=== PATIENT | male | born 1970 | race African-American/Black ===

== ENCOUNTER 2017-09-07 10:14 | Inpatient (IN) | payer BC ==
[2017-09-07 10:30] VITALS: BMI 30.7
--- NOTE | 2017-09-07 11:56 | HP ---
Admission ROS [facility] - [facility] Chief Complaint: Sent by drug court to rehab to stop drug use. Allergies/Adverse Reactions: Allergies Allergy/AdvReac Type Severity Reaction Status Date / Time No Known Allergies Allergy Verified 09/07/17 11:07 History of Present Illness: 47 y/o man with a long hx. of Alcohol & Cocaine dependence is admitted to rehab. Pt. was sent here by drug court. Exam Limitations: No Limitations - Ebola screening Have you traveled outside of the country in the last 21 days: No (N) Have you had contact with anyone from an Ebola affected area: No Have you been sick,other than usual withdrawal symptoms: No Do you have a fever: No - Review of Systems Constitutional: No Symptoms Reported EENT: reports: No Symptoms Reported Respiratory: reports: Wheezing (Off & On because of asthma) Cardiac: reports: No Symptoms Reported GI: reports: No Symptoms Reported : reports: No Symptoms Reported Musculoskeletal: reports: Joint Pain Integumentary: reports: No Symptoms Reported Neuro: reports: No Symptoms reported Endocrine: reports: No Symptoms Reported Hematology: reports: No Symptoms Reported Psychiatric: reports: No Sypmtoms Reported Other Systems: Reviewed and Negative Patient History - Patient Medical History Hx Anemia: No Hx Asthma: Yes Hx Chronic Obstructive Pulmonary Disease (COPD): No Hx Cancer: No Hx Cardiac Disorders: No Hx Congestive Heart Failure: No Hx Hypertension: Yes Hx Hypercholesterolemia: Yes (No meds in yrs.) Hx Pacemaker: No HX Cerebrovascular Accident: No Hx Seizures: No Hx Dementia: No Hx Diabetes: No Hx Gastrointestinal Disorders: No Hx Liver Disease: No Hx Genitourinary Disorders: No Hx Sexually Transmitted Disorders: No Hx Thyroid Disease: No Hx Human Immunodeficiency Virus (HIV): No Hx Hepatitis C: No Hx Depression: No Hx Suicide Attempt: No Hx Bipolar Disorder: No Hx Schizophrenia: No - Patient Surgical History Past Surgical History: Yes Hx Neurologic Surgery: Yes (C5-6 Laminectomy) Hx Orthopedic Surgery: Yes (Left Rotator cuff) - PPD History Previous Implant?: Yes Documented Results: Negative w/o proof PPD to be Administered?: Yes - Smoking Cessation Smoking history: Current every day smoker Aproximately how many cigarettes per day: 10 Hx Chewing Tobacco Use: No Initiated information on smoking cessation: Yes 'Breaking Loose' booklet given: 09/07/17 - Substance & Tx. History Hx Alcohol Use: Yes Hx Substance Use: Yes Substance Use Type: Alcohol, Cocaine (PCP) Hx Substance Use Treatment: Yes ([facility]) - Substances Abused Alcohol Route: Oral Frequency: 1-2 times per week Amount used: 1 pint Age of first use: 13 Date of Last Use: 08/18/17 Cocaine Route: Inhalation Frequency: 1-3 times last 30 days Amount used: 3-4 gm Age of first use: 20 Date of Last Use: 08/29/17 Family Disease History - Family Disease History Family Disease History: Diabetes: Mother (HTN, Throat Ca.), Sister (HTN), Heart Disease: Father (HTN), Mother, Brother (HTN), Sister, CA: Mother Admission Physical Exam [facility] - Vital Signs Vital Signs: Vital Signs - 24 hr 09/07/17 10:28 Temperature 98.1 F Pulse Rate 90 Respiratory 18 Rate Blood Pressure 148/85 - Physical General Appearance: Yes: Within Normal Limits HEENTM: Yes: Within Normal Limits Respiratory: Yes: Chest Non-Tender, Lungs Clear, Normal Breath Sounds Neck: Yes: Supple Breast: Yes: Breast Exam Deferred Cardiology: Yes: Regular Rhythm, Regular Rate, S1, S2 Abdominal: Yes: Normal Bowel Sounds, Non Tender, Soft Genitourinary: Yes: Within Normal Limits Back: Yes: Within Normal Limits Musculoskeletal: Yes: Within Normal Limits Extremities: Yes: Within Normal Limits Neurological: Yes: Fully Oriented, Alert Integumentary: Yes: Within Normal Limits Lymphatic: Yes: Within Normal Limits - Diagnostic (1) Uncomplicated alcohol dependence Current Visit: Yes Status: Acute (2) Cocaine dependence, uncomplicated Current Visit: Yes Status: Acute (3) HTN (hypertension) Current Visit: Yes Status: Acute Cleared for Admission [facility] - Detox or Rehab Claeared for Rehab Admission: Yes [facility] Breath Alcohol Content Breath Alcohol Content: 0 Urine Drug Screen - Results Drug Screen Negative: No Urine Drug Screen Results: RERE-Cocaine, PCP-Phencyclidine Inpatient Rehab Admission - Initial Determination Are CD services needed?: Yes Free of communicable disease: Yes Not in need of hospitalization: Yes - Rehab Admission Criteria Previous failed treatment: Yes Poor recovery environment: Yes Comorbidities: Yes Lacks judgement: Yes Patient is meeting Inpatient Rehab admission criteria:: Yes
[2017-09-07] MEDS ORDERED: IBUPROFEN 400 MG TABLET (FP) PO PRN (12:09)
[2017-09-07] MEDS ORDERED: MAGNESIUM CITRATE 300 ML BOTTLE PO PRN (12:09)
[2017-09-07] MEDS ORDERED: MAG HYDROX/AL HYDROX/SIMETH 30 ML UNIT-DOSE CUP PO PRN (12:09)
[2017-09-07] MEDS ORDERED: P-EPHED 60MG/TRIPROLIDI 2.5MG TABLET PO PRN (12:09)
[2017-09-07] MEDS ORDERED: MENTHOL/PHENOL 1 EACH UD MM PRN (12:09)
[2017-09-07] MEDS ORDERED: ACETAMINOPHEN 325 MG TABLET (FP) PO PRN (12:09)
[2017-09-07] MEDS ORDERED: guaiFENesin/D-METHORPHAN HB 10 ML UNIT-DOSE CUPS PO PRN (12:09)
[2017-09-07] MEDS ORDERED: NICOTINE POLACRILEX 2 MG GUM BC PRN (12:09)
[2017-09-07] MEDS ORDERED: MAGNESIUM HYDROX 2400MG/30ML ORAL SUSPENSION 30 ML CUP PO PRN (12:09)
[2017-09-07] MEDS ORDERED: LOPERAMIDE HCL 2 MG CAPSULE PO PRN (12:09)
[2017-09-07 13:28] LABS: HEMATOCRIT 38.8 % (35.4-49); HEMOGLOBIN 12.6 GM/dL (11.7-16.9); MCH 29.9 pg (25.7-33.7); MCHC 32.6 g/dl (32.0-35.9); MEAN CELL VOLUME 91.8 fl (80-96); MEAN PLT VOLUME 7.7 fl (7.5-11.1); PLATELET COUNT 225 K/MM3 (134-434); RBC 4.22 M/mm3 (4.00-5.60); RDW 13.6 % (11.9-15.9); WHITE BLOOD COUNT 10.2 K/mm3 (4.0-10.0)
[2017-09-07 13:37] LABS: ALBUMIN 3.9 g/dl (3.4-5.0); ANION GAP 8 (8-16); BLOOD UREA NITROGEN 12 mg/dL (7-18); CALCIUM 9.4 mg/dL (8.5-10.1); CHLORIDE 106 mmol/L (98-107); CO2 28 mmol/L (21-32); CREATININE 1.3 mg/dL (0.7-1.3); GLUCOSE,RANDOM 121 mg/dL (74-106); POTASSIUM 3.7 mmol/L (3.5-5.1); SGOT/AST 35 U/L (15-37); SGPT/ALT 52 U/L (12-78); SODIUM 142 mmol/L (136-145)
[2017-09-07 13:39] LABS: ALK PHOS 46 U/L (45-117); BILIRUBIN,TOTAL 0.5 mg/dL (0.2-1.0); TOT PROT 7.1 g/dl (6.4-8.2)
[2017-09-07] MEDS ORDERED: TUBERCULIN PPD 5 TU/0.1ML VIAL ID ONE (17:40)
[2017-09-07] MEDS: amLODIPine BESYLATE 5 MG TABLET (FP) PO SCH (17:42)
[2017-09-07] MEDS: NICOTINE 21 MG/24 HOURS TOPICAL PATCH TD SCH (17:44)
[2017-09-07] MEDS: THIAMINE HCL 100 MG TABLET (FP) PO SCH (22:26)
[2017-09-08 01:27] LABS: URINE APPEARANCE SLCLOUDY; URINE BILIRUBIN NEGATIVE (NEGATIVE); URINE BLOOD NEGATIVE (NEGATIVE); URINE COLOR YELLOW; URINE GLUCOSE (UA) NEGATIVE (NEGATIVE); URINE KETONE NEGATIVE (NEGATIVE); URINE NITRITE NEGATIVE (NEGATIVE); URINE PROTEIN NEGATIVE (NEGATIVE); URINE UROBILINOGEN NEGATIVE mg/dL (0.2-1.0)
[2017-09-08] MEDS: amLODIPine BESYLATE 5 MG TABLET (FP) PO SCH (09:46)
[2017-09-08] MEDS: PRENATAL VITAMINS W/ FOLIC ACID TABLET (FP) PO SCH (09:46)
[2017-09-08] MEDS: NICOTINE 21 MG/24 HOURS TOPICAL PATCH TD SCH (09:47)
[2017-09-08 10:35] LABS: URINE LEUK ESTERASE Negative (NEGATIVE)
[2017-09-08] MEDS ORDERED: FLU VACCINE QUAD 60 MCG/0.5 ML (MDV 17-18) IM ONE (12:00)
[2017-09-08] MEDS: THIAMINE HCL 100 MG TABLET (FP) PO SCH (21:13)
--- NOTE | 2017-09-09 08:34 | EKG ---
Test Reason : Blood Pressure : / mmHG Vent. Rate : 078 BPM Atrial Rate : 078 BPM P-R Int : 164 ms QRS Dur : 088 ms QT Int : 380 ms P-R-T Axes : 056 037 046 degrees QTc Int : 433 ms NORMAL SINUS RHYTHM NORMAL ECG NO PREVIOUS ECGS AVAILABLE Confirmed by CAMMY EPPS, GONZALEZ ([id number]) on 09/09/2017 8:33:57 AM Referred By: Confirmed By:GONZALEZ CHAWLA MD
[2017-09-09] MEDS: PRENATAL VITAMINS W/ FOLIC ACID TABLET (FP) PO SCH (09:10)
[2017-09-09] MEDS: NICOTINE 21 MG/24 HOURS TOPICAL PATCH TD SCH (09:10)
[2017-09-09] MEDS: amLODIPine BESYLATE 5 MG TABLET (FP) PO SCH (09:11)
[2017-09-09] MEDS: THIAMINE HCL 100 MG TABLET (FP) PO SCH (21:33)
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
[2017-09-10] MEDS: amLODIPine BESYLATE 5 MG TABLET (FP) PO SCH ×2 (10:21→10:31)
[2017-09-10] MEDS: PRENATAL VITAMINS W/ FOLIC ACID TABLET (FP) PO SCH ×2 (10:21→10:31)
[2017-09-10] MEDS: NICOTINE 21 MG/24 HOURS TOPICAL PATCH TD SCH (10:21)
--- NOTE | 2017-09-10 11:52 | PN ---
[facility] Progress Note (SOAP) Subjective: c/o left shoulder pain 2/2 old injury radiating down arm. advil does not relieve pain has been worse since admission Objective: 09/10/17 11:50 Vital Signs - 8 hr 09/10/17 09/10/17 06:57 10:00 Temperature 97.7 F Pulse Rate 71 101 H Respiratory 18 18 Rate Blood Pressure 108/73 136/73 Laboratory Tests 09/07/17 09/07/17 09/07/17 12:00 12:00 12:00 WBC 10.2 H RBC 4.22 Hgb 12.6 Hct 38.8 MCV 91.8 MCH 29.9 MCHC 32.6 RDW 13.6 Plt Count 225 MPV 7.7 Sodium 142 Potassium 3.7 Chloride 106 Carbon Dioxide 28 Anion Gap 8 BUN 12 Creatinine 1.3 Creat Clearance w eGFR 59.17 Random Glucose 121 H Calcium 9.4 Total Bilirubin 0.5 AST 35 ALT 52 Alkaline Phosphatase 46 Total Protein 7.1 Albumin 3.9 Urine Color Urine Appearance Urine pH Ur Specific [place] Urine Protein Urine Glucose (UA) Urine Ketones Urine Blood Urine Nitrite Urine Bilirubin Urine Urobilinogen Ur Leukocyte Esterase RPR Titer Nonreactive 09/07/17 21:00 WBC RBC Hgb Hct MCV MCH MCHC RDW Plt Count MPV Sodium Potassium Chloride Carbon Dioxide Anion Gap BUN Creatinine Creat Clearance w eGFR Random Glucose Calcium Total Bilirubin AST ALT Alkaline Phosphatase Total Protein Albumin Urine Color Yellow Urine Appearance Slcloudy Urine pH 5.0 Ur Specific [place] 1.021 Urine Protein Negative Urine Glucose (UA) Negative Urine Ketones Negative Urine Blood Negative Urine Nitrite Negative Urine Bilirubin Negative Urine Urobilinogen Negative Ur Leukocyte Esterase Negative RPR Titer 09/10/17 11:51 tender on palpation, full ROM numbness and tingling Assessment: 09/10/17 11:51 mixed picture neuropathic pain 2/2 to old injury d/c advil, start naprosyn atc w protonix, neurontin 100mg tid. will anaw, f/u pcp when discharged patient aware, reviewed labs
[2017-09-10] MEDS: PANTOPRAZOLE 40 MG TABLET (FP) PO SCH (13:10)
[2017-09-10] MEDS: NAPROXEN 500 MG TABLET (FP) PO SCH ×2 (13:10→23:28)
[2017-09-10] MEDS: GABAPENTIN 100 MG CAPSULE (FP) PO SCH ×2 (14:30→23:29)
[2017-09-10] MEDS ORDERED: SUVOREXANT 10 MG TABLET PO PRN (22:00)
[2017-09-10] MEDS: THIAMINE HCL 100 MG TABLET (FP) PO SCH (23:29)
[2017-09-11] MEDS: GABAPENTIN 100 MG CAPSULE (FP) PO SCH ×3 (06:22→22:05)
[2017-09-11] MEDS: NAPROXEN 500 MG TABLET (FP) PO SCH ×2 (10:28→22:05)
[2017-09-11] MEDS: NICOTINE 21 MG/24 HOURS TOPICAL PATCH TD SCH (10:28)
[2017-09-11] MEDS: PANTOPRAZOLE 40 MG TABLET (FP) PO SCH (10:28)
[2017-09-11] MEDS: PRENATAL VITAMINS W/ FOLIC ACID TABLET (FP) PO SCH (10:28)
[2017-09-11] MEDS: amLODIPine BESYLATE 5 MG TABLET (FP) PO SCH (10:28)
[2017-09-11] MEDS: THIAMINE HCL 100 MG TABLET (FP) PO SCH (22:05)
[2017-09-12] MEDS: GABAPENTIN 100 MG CAPSULE (FP) PO SCH ×3 (05:57→22:05)
[2017-09-12] MEDS: NICOTINE 21 MG/24 HOURS TOPICAL PATCH TD SCH (10:19)
[2017-09-12] MEDS: PRENATAL VITAMINS W/ FOLIC ACID TABLET (FP) PO SCH (10:19)
[2017-09-12] MEDS: NAPROXEN 500 MG TABLET (FP) PO SCH ×2 (10:19→22:05)
[2017-09-12] MEDS: amLODIPine BESYLATE 5 MG TABLET (FP) PO SCH (10:19)
[2017-09-12] MEDS: PANTOPRAZOLE 40 MG TABLET (FP) PO SCH (10:25)
[2017-09-12] MEDS ORDERED: COLLOIDAL OATMEAL 1 BAR EACH TP PRN (11:32)
[2017-09-12] MEDS: THIAMINE HCL 100 MG TABLET (FP) PO SCH (22:05)
[2017-09-13] MEDS: GABAPENTIN 100 MG CAPSULE (FP) PO SCH ×3 (06:29→21:45)
[2017-09-13] MEDS: amLODIPine BESYLATE 5 MG TABLET (FP) PO SCH (10:22)
[2017-09-13] MEDS: NAPROXEN 500 MG TABLET (FP) PO SCH ×2 (10:22→21:45)
[2017-09-13] MEDS: NICOTINE 21 MG/24 HOURS TOPICAL PATCH TD SCH (10:22)
[2017-09-13] MEDS: PRENATAL VITAMINS W/ FOLIC ACID TABLET (FP) PO SCH (10:22)
[2017-09-13] MEDS: PANTOPRAZOLE 40 MG TABLET (FP) PO SCH (10:22)
--- NOTE | 2017-09-13 15:12 | PN ---
Psychiatric Progress Note Vital Signs: Vital Signs Period Temp Pulse Resp BP Sys/Pulido Pulse Ox Last 24 Hr 97.8 F 91-108 18-20 110-134/67-76 Date of Session: 09/13/17 Chief Complaint:: Discharge Note HPI: Patient addressing Alcohol and Cocaine Dependence comorbid with Nicotine Dependence, Substance-induced Mood Disorder and Substance-induced Sleep Disorder ROS: HTN, Hyperlipidemia, Asthma were medically managed Current Medications: Active Medications Generic Name Dose Route Start Last Admin Trade Name Freq PRN Reason Stop Dose Admin Acetaminophen 650 mg 09/07/17 12:09 Tylenol - PO Q4H PRN PAIN Al Hydroxide/Mg Hydroxide 30 ml 09/07/17 12:09 Mylanta Oral Suspension - PO Q6H PRN DYSPEPSIA Amlodipine Besylate 5 mg 09/07/17 15:45 09/13/17 10:22 Norvasc - PO 5 mg DAILY JIL Administration Colloidal Oatmeal 1 applic 09/12/17 11:32 09/12/17 12:01 Aveeno Soap - TP 1 applic DAILY PRN Administration HYGEINE Eucalyptus/Menthol/Phenol/Sorbitol 1 each 09/07/17 12:09 Cepastat Lozenge - MM Q4H PRN SORE THROAT Gabapentin 100 mg 09/10/17 14:00 09/13/17 14:25 Neurontin - PO 100 mg TID JIL Administration Guaifenesin 10 ml 09/07/17 12:09 Robitussin Dm - PO Q6H PRN COUGH Loperamide HCl 4 mg 09/07/17 12:09 Imodium - PO Q6H PRN DIARRHEA Magnesium Citrate 300 ml 09/07/17 12:09 09/09/17 09:10 Citroma - PO 300 ml Q48H PRN Administration CONSTIPATION Magnesium Hydroxide 30 ml 09/07/17 12:09 09/08/17 22:17 Milk Of Magnesia - PO 30 ml DAILY PRN Administration CONSTIPATION Naproxen 500 mg 09/10/17 12:32 09/13/17 10:22 Naprosyn - PO 500 mg BID JIL Administration Nicotine 21 mg 09/07/17 15:45 09/13/17 10:22 Nicoderm Patch - TD Not Given DAILY JIL Nicotine Polacrilex 2 mg 09/07/17 12:09 Nicorette Gum - BC Q2H PRN NICOTINE REPLACEMENT RX Pantoprazole Sodium 40 mg 12/04/17 12:32 09/13/17 10:22 Protonix - PO 40 mg DAILY JLI Administration Multivit/Folic Acid/Iron 1 tab 09/08/17 10:00 09/13/17 10:22 Vitamins (Sjr) - PO 1 tab DAILY JIL Administration Pseudoephedrine/Triprolidine 1 combo 09/07/17 12:09 Actifed - PO TID PRN NASAL CONGESTION Selenium Sulfide 1 applic 09/14/17 10:00 Selsun 2.5% Lotion - TP 09/20/17 13:23 DAILY JIL Thiamine HCl 100 mg 09/07/17 22:00 09/12/17 22:05 Vitamin B1 - PO 100 mg HS JIL Administration Current Side Effect: No Lab tests ordered: Yes Lab tests reviewed: Yes Provider note:: Pablo will complete this program on 09/14/17. He has met his treatment goals and will continue to address his issues in inpatient rehab program at [facility] in [place]. Told leader writer that from his participation in this program, he has learned to identify his triggers and ways to manage them.He responded well to Belsomra 10 mg po HS for insomnia. He is stable for discharge on 09/14/17 Total face to face time:: 35 Mental Status Exam - Mental Status Exam Alert and Oriented to: Time, Place, Person Cognitive Function: Fair Patient Appearance: Well Groomed Mood: Hopeful, Euthymic Affect: Appropriate Patient Behavior: Cooperative Speech Pattern: Clear Voice Loudness: Normal Thought Process: Intact, Goal Oriented Thought Disorder: Not Present Hallucinations: Denies Suicidal Ideation: Denies Homicidal Ideation: Denies Insight/Judgement: Fair Sleep: Fair Appetite: Good Muscle strength/Tone: Normal Gait/Station: Normal Psychiatric Treatment Plan - Problem List (1) Alcohol dependence Current Visit: Yes (2) Cocaine dependence Current Visit: Yes (3) Nicotine dependence Current Visit: Yes (4) Substance induced mood disorder Current Visit: Yes (5) Substance-induced sleep disorder Current Visit: Yes (6) HTN (hypertension) Current Visit: Yes (7) Hyperlipidemia Current Visit: Yes (8) Asthma Current Visit: Yes Initial treatment plan: Patient will be discharged tomorrow and referred to for outpatient treatment
[2017-09-13] MEDS: THIAMINE HCL 100 MG TABLET (FP) PO SCH (21:45)
[2017-09-14] MEDS: GABAPENTIN 100 MG CAPSULE (FP) PO SCH (06:02)
[2017-09-14 07:09] VITALS: TEMP 97.5
[2017-09-14] MEDS: PRENATAL VITAMINS W/ FOLIC ACID TABLET (FP) PO SCH (09:35)
[2017-09-14] MEDS: NAPROXEN 500 MG TABLET (FP) PO SCH (09:35)
[2017-09-14] MEDS: PANTOPRAZOLE 40 MG TABLET (FP) PO SCH (09:36)
[2017-09-14] MEDS: amLODIPine BESYLATE 5 MG TABLET (FP) PO SCH (09:36)
[2017-09-14] MEDS ORDERED: SELENIUM SULFIDE 2.5% LOTION 4 OZ. TP SCH (10:00)
[2017-09-14 10:39] VITALS: BP 124/77; PULSE 87
== END 2017-09-14 09:45 | disposition home or self-care (01) | DRG 895 ==
LOC: YASAS 10:14 → Y3W 15:19
PROVIDERS: ADMIT Psychiatry & Neurology Psychiatry; ATTEND Psychiatry & Neurology Psychiatry
PROC: HZ42ZZZ Group Counseling for Substance Abuse Treatment, Cognitive-Behavioral (ICD-10-PCS; principal; 2017-09-07)
DX: F14.20 Cocaine dependence, uncomplicated (principal); F19.282 Other psychoactive substance dependence with psychoactive substance-induced sleep disorder; F17.210 Nicotine dependence, cigarettes, uncomplicated; F19.24 Other psychoactive substance dependence with psychoactive substance-induced mood disorder; I10 Essential (primary) hypertension; E78.5 Hyperlipidemia, unspecified; J45.909 Unspecified asthma, uncomplicated
CPT/HCPCS: 36415; 80053; 81003; 85027; 86593; 90688; 93005; 93010; G0008